=== PATIENT | male | born 1965 | race Hispanic/Latino ===

== ENCOUNTER → 2023-08-19 | Day surgery (SDC) | payer BC ==
[~2023-08-19] MED LIST: DEXMEDETOMIDINE HCL 200 MCG/2 ML VIAL ONE; FENTANYL CITRATE/PF 100MCG/2 ML INJ ONE; GABAPENTIN100 MG PO; LACTATED RINGER'S 1,000 ML BAG ONE; LACTATED RINGER'S 1,000 ML ONE; MIDAZOLAM HCL 2 MG/2 ML VIAL ONE
[2023-08-19] MEDS: LACTATED RINGER'S 1,000 ML BAG IV ONE (08:21)
[2023-08-19 09:51] VITALS: TEMP 97.9
[2023-08-19 10:15] VITALS: BP 114/76; PULSE 70; RESP 14; O2SAT 96
== END | disposition home or self-care (01) ==
LOC: OR 07:47
PROVIDERS: ATTEND Physical Medicine & Rehabilitation Pain Medicine
DX: M51.16 Intervertebral disc disorders with radiculopathy, lumbar region (principal); M51.26 Other intervertebral disc displacement, lumbar region; M47.896 Other spondylosis, lumbar region; R93.7 Abnormal findings on diagnostic imaging of other parts of musculoskeletal system; Z79.899 Other long term (current) drug therapy; Z68.35 Body mass index [BMI] 35.0-35.9, adult
CPT/HCPCS: 64483; 64484; J2250; J3010; J7121; 77002